=== PATIENT | female | born 1940 | race Caucasian/White ===

== ENCOUNTER 2020-12-14 09:27 | Inpatient (IN) ==
[2020-12-14] MEDS ORDERED: SODIUM CHLORIDE 0.9% 1,000 ML IV STA ×3 (09:35→11:13)
[2020-12-14] MEDS ORDERED: CLINDAMYCIN INJ 600 MG/50 ML PREMIX IV STA (09:36)
[2020-12-14] MEDS ORDERED: HYDROCORTISONE 100 MG VIAL IV STA (09:36)
[2020-12-14] MEDS ORDERED: LEVOFLOXACIN INJ 750 MG in PREMIX 1 EACH IV STA (09:36)
[2020-12-14 10:18] LABS: ABG Base Excess -0.4 MMOL/L (-2.5-2.5); ABG Oxygen Saturation 93.9 % (95-100); ABG PCO2 50.1 MM HG (35-48); ABG PH 7.327 (7.35-7.45); ABG PO2 71.8 MM HG (80-95); ABG TCO2 23.4 MMOL/L (23-27)
[2020-12-14 10:26] LABS: Basophils % 0.3 % (0.0-0.8); Hematocrit 43.3 VOL% (35.7-47.0); Hemoglobin 13.1 GM/DL (12.0-16.0); Immature Granulocytes % 1.4 %; Immature Granulocytes Absolute 0.17 #; Lymphocytes # 0.4 10*3/uL (1.4-4.0); Lymphocytes % 3.4 % (21.3-54.2); Mean Corpuscular HGB Conc 30.3 GM/DL (32-36); Mean Corpuscular Volume 104.6 FL (87-102); Mean Platelet Volume 11.9 FL (9.6-12.0); Monocytes % 3.9 % (1.7-12.7); Platelet Count 230 T/CUMM (130-400); Red Blood Count 4.14 MC/CUMM (3.8-5.5); Red Cell Distribution Width 14.7 % (9.3-17.3); White Blood Count 12.2 T/CUMM (4-12)
[2020-12-14 10:43] LABS: INR 1.2; PT Patient Result 12.9 SECS (10.5-12.0); Partial Thromboplastin Time 27.1 SECS (23.9-33.8)
[2020-12-14 10:46] LABS: Band Neutrophils 1 % (0-10); Lymphocytes 1 % (20-55); Platelet Estimate Adequate; Segmented Neutrophils 94 % (50-85); Total Cells Counted 100
[2020-12-14 10:52] LABS: Alanine Aminotransferase 29 U/L (13-56); Albumin 2.6 G/DL (3.4-5.0); Alkaline Phosphatase 88 U/L (45-117); Aspartate Amino Transferase 49 U/L (0-37); Blood Urea Nitrogen 47 MG/DL (7-18); Calcium 8.7 MG/DL (8.5-10.1); Carbon Dioxide 27 MMOL/L (21-32); Estimated Glom Filtration Rate 21 ML/MIN; Glucose 119 MG/DL (74-106); Osmolality,Calculated 306.3 MOS/KG (273-304); Potassium 4.4 MMOL/L (3.5-5.1); Sodium 148 MMOL/L (136-145); Total Protein 6.6 G/DL (6.4-8.2)
[2020-12-14] MEDS ORDERED: DEXTROSE 50% 25 GM/50 ML VIAL IV PRN (11:23)
[2020-12-14] MEDS ORDERED: GLUCAGON 1 MG VIAL IM PRN (11:23)
[2020-12-14] MEDS ORDERED: ONDANSETRON 4 MG/2 ML VIAL IV PRN (11:23)
[2020-12-14] MEDS ORDERED: VANCOMYCIN INJ 1,000 MG in SODIUM CHLORIDE 0.9% 250 ML IV ONE ×2 (12:00→13:00)
[2020-12-14 12:07] LABS: Risk Ratio 4.02; Thyroid Stimulating Hormone 0.401 uIU/ml (0.358-3.74)
[2020-12-14] MEDS: HEPARIN 5,000 UNIT/1 ML VIAL SUBCUT SCH ×2 (12:41→23:38)
[2020-12-14] MEDS: SODIUM BICARB INJ 100 MEQ in DEXTROSE 5% 1,000 ML IV SCH ×2 (12:41→23:36)
[2020-12-14 12:52] LABS: Bacteria,Urine Occasional /HPF (Few); Bilirubin,Urine Negative (Negative); Blood, Urine Small mg/dL (Negative); Glucose,Urine (UA) Negative (Negative); Hyaline Casts,Urine 37 /LPF (0-3); Ketones,Urine Negative (Negative); Mucus,Urine Few /LPF (Occasional); Nitrite,Urine Negative (Negative); Protein,Urine 30 MG/DL; RBC,Urine 8 /HPF (0-4); Squamous Epithelial Cell,Urine Few /HPF (0-10); Urine Appearance CLOUDY (Clear); Urine Color Yellow (Yellow); Urine Specific Gravity 1.013 (1.001-1.035); Urine Urobilinogen < 2.0 EU/DL (0.2-1.0)
[2020-12-14] MEDS: ALBUTEROL/IPRATROPIUM 3 ML NEB RESP TX SCH (19:57)
[2020-12-14] MEDS: MEROPENEM 500 MG in SODIUM CHLORIDE 0.9% 100 ML IV SCH (20:37)
[2020-12-15] MEDS: ALBUTEROL/IPRATROPIUM 3 ML NEB RESP TX SCH ×4 (00:11→18:12)
[2020-12-15 06:20] LABS: Basophils % 0.2 % (0.0-0.8); Hematocrit 35.8 VOL% (35.7-47.0); Immature Granulocytes % 0.9 %; Immature Granulocytes Absolute 0.09 #; Lymphocytes # 1.2 10*3/uL (1.4-4.0); Lymphocytes % 10.9 % (21.3-54.2); Mean Corpuscular HGB Conc 30.4 GM/DL (32-36); Mean Corpuscular Volume 102.9 FL (87-102); Mean Platelet Volume 13.1 FL (9.6-12.0); Monocytes % 4.5 % (1.7-12.7); Neutrophils % 83.5 % (38.7-73.9); Red Blood Count 3.48 MC/CUMM (3.8-5.5); Red Cell Distribution Width 14.8 % (9.3-17.3); White Blood Count 10.6 T/CUMM (4-12)
[2020-12-15 06:21] LABS: Hemoglobin 10.9 GM/DL (12.0-16.0); Platelet Count 166 T/CUMM (130-400)
[2020-12-15 06:37] LABS: Calcium 7.1 MG/DL (8.5-10.1); Osmolality,Calculated 293.7 MOS/KG (273-304); Potassium 4.3 MMOL/L (3.5-5.1)
[2020-12-15 06:39] LABS: Band Neutrophils 3 % (0-10); Hypochromasia Slight; Lymphocytes 14 % (20-55); Segmented Neutrophils 77 % (50-85); Total Cells Counted 100
[2020-12-15 06:40] LABS: Microcytosis 1+; Ovalocytes Few; Platelet Estimate Adequate
[2020-12-15] MEDS: MEROPENEM 500 MG in SODIUM CHLORIDE 0.9% 100 ML IV SCH ×2 (06:43→21:16)
[2020-12-15] MEDS: PANTOPRAZOLE 40 MG VIAL IV SCH (08:44)
[2020-12-15] MEDS ORDERED: ZIPRASIDONE 20 MG/1 ML VIAL IM PRN (10:16)
[2020-12-15] MEDS: SODIUM BICARB INJ 100 MEQ in DEXTROSE 5% 1,000 ML IV SCH (11:35)
[2020-12-15] MEDS: HEPARIN 5,000 UNIT/1 ML VIAL SUBCUT SCH ×2 (11:35→23:24)
[2020-12-15] MEDS: VANCOMYCIN INJ 1,000 MG in SODIUM CHLORIDE 0.9% 250 ML IV SCH (17:01)
[2020-12-15] MEDS: DEXTROSE 5% 1,000 ML IV SCH (17:01)
[2020-12-16] MEDS: ALBUTEROL/IPRATROPIUM 3 ML NEB RESP TX SCH ×4 (00:05→19:20)
[2020-12-16] MEDS: DEXTROSE 5% 1,000 ML IV SCH ×2 (05:00→20:58)
[2020-12-16 08:20] LABS: Basophils % 0.1 % (0.0-0.8); Eosinophils % 0.1 % (0.00-10.9); Hematocrit 30.9 VOL% (35.7-47.0); Hemoglobin 9.5 GM/DL (12.0-16.0); Immature Granulocytes % 1.2 %; Immature Granulocytes Absolute 0.13 #; Lymphocytes % 18.5 % (21.3-54.2); Mean Corpuscular HGB Conc 30.7 GM/DL (32-36); Mean Corpuscular Volume 100.7 FL (87-102); Mean Platelet Volume 11.5 FL (9.6-12.0); Monocytes % 4.2 % (1.7-12.7); Neutrophils % 75.9 % (38.7-73.9); Platelet Count 139 T/CUMM (130-400); Red Blood Count 3.07 MC/CUMM (3.8-5.5); Red Cell Distribution Width 14.6 % (9.3-17.3); White Blood Count 10.7 T/CUMM (4-12)
[2020-12-16 08:42] LABS: Hypochromasia 1+; Microcytosis 1+; Platelet Estimate Normal
[2020-12-16 08:44] LABS: Calcium 6.9 MG/DL (8.5-10.1); Osmolality,Calculated 289.8 MOS/KG (273-304); Potassium 3.5 MMOL/L (3.5-5.1)
[2020-12-16] MEDS: PANTOPRAZOLE 40 MG VIAL IV SCH (09:07)
[2020-12-16] MEDS: MEROPENEM 500 MG in SODIUM CHLORIDE 0.9% 100 ML IV SCH ×2 (09:07→20:58)
[2020-12-16] MEDS: HEPARIN 5,000 UNIT/1 ML VIAL SUBCUT SCH (11:26)
[2020-12-16] MEDS ORDERED: MAGNESIUM SULF RIDER 4 GM/100 ML PREMIX IV PRN (12:23)
[2020-12-16] MEDS ORDERED: MAGNESIUM SULF RIDER 2 GM/50 ML PREMIX IV PRN (12:23)
[2020-12-16] MEDS ORDERED: POLYETHYLENE GLYCOL POWDER 17 GM PACK PO PRN (14:19)
[2020-12-16] MEDS: VANCOMYCIN INJ 1,000 MG in SODIUM CHLORIDE 0.9% 250 ML IV SCH (17:05)
[2020-12-16] MEDS: MELATONIN 3 MG TABLET PO SCH ×2 (20:57→23:17)
[2020-12-16] MEDS: traZODone 50 MG TABLET PO SCH ×4 (20:57→23:16)
[2020-12-16] MEDS: ZINC OXIDE PASTE 113 GM TUBE TOP SCH (23:16)
[2020-12-17] MEDS: ALBUTEROL/IPRATROPIUM 3 ML NEB RESP TX SCH ×2 (00:35→09:55)
[2020-12-17] MEDS: HEPARIN 5,000 UNIT/1 ML VIAL SUBCUT SCH ×2 (01:52→11:34)
[2020-12-17 07:07] LABS: Basophils % 0.1 % (0.0-0.8); Eosinophils % 0.3 % (0.00-10.9); Hematocrit 32.5 VOL% (35.7-47.0); Hemoglobin 10.4 GM/DL (12.0-16.0); Immature Granulocytes % 0.8 %; Immature Granulocytes Absolute 0.08 #; Mean Corpuscular Volume 97.9 FL (87-102); Mean Platelet Volume 11.6 FL (9.6-12.0); Monocytes % 4.6 % (1.7-12.7); Neutrophils % 74.2 % (38.7-73.9); Platelet Count 151 T/CUMM (130-400); Red Blood Count 3.32 MC/CUMM (3.8-5.5); Red Cell Distribution Width 14.3 % (9.3-17.3); White Blood Count 10.1 T/CUMM (4-12)
[2020-12-17 07:31] LABS: Calcium 7.8 MG/DL (8.5-10.1); Osmolality,Calculated 276.5 MOS/KG (273-304); Potassium 3.4 MMOL/L (3.5-5.1)
[2020-12-17] MEDS: PANTOPRAZOLE 40 MG VIAL IV SCH (08:43)
[2020-12-17] MEDS: traZODone 50 MG TABLET PO SCH (08:43)
[2020-12-17] MEDS ORDERED: busPIRone 5 MG TABLET PO SCH (09:00)
[2020-12-17] MEDS: DEXTROSE 5% 1,000 ML IV SCH (09:03)
[2020-12-17] MEDS: MEROPENEM 500 MG in SODIUM CHLORIDE 0.9% 100 ML IV SCH (09:03)
[2020-12-17] MEDS: ZINC OXIDE PASTE 113 GM TUBE TOP SCH (09:09)
[2020-12-17] MEDS ORDERED: DIVALPROEX SPRINKLE 125 MG CAPSULE PO SCH (10:00)
[2020-12-17] MEDS ORDERED: DOXYCYCLINE HYCLATE 100 MG CAPSULE PO SCH (10:00)
[2020-12-17] MEDS ORDERED: POTASSIUM CHLORIDE 20 MEQ TABLET PO ONE (12:00)
[2020-12-17 16:28] VITALS: BP 146/104
== END 2020-12-17 16:42 | DRG 871 ==
LOC: EDUNIT# → EDBD → N.ED 09:27 → N.EDINP 11:08 → N.5E 20:11
PROVIDERS: ADMIT Hospitalist; ATTEND Hospitalist

== ENCOUNTER 2021-01-16 05:47 | Inpatient (IN) ==
[2021-01-16] MEDS ORDERED: ONDANSETRON 4 MG/2 ML VIAL IV STA (06:11)
[2021-01-16 06:41] LABS: Basophils % 0.1 % (0.0-0.8); Hematocrit 45.1 VOL% (35.7-47.0); Hemoglobin 14.7 GM/DL (12.0-16.0); Immature Granulocytes % 0.7 %; Lymphocytes # 0.5 10*3/uL (1.4-4.0); Lymphocytes % 3.6 % (21.3-54.2); Mean Corpuscular HGB Conc 32.6 GM/DL (32-36); Mean Corpuscular Volume 97.2 FL (87-102); Mean Platelet Volume 11.5 FL (9.6-12.0); Monocytes % 2.7 % (1.7-12.7); Neutrophils % 92.9 % (38.7-73.9); Platelet Count 359 T/CUMM (130-400); Red Blood Count 4.64 MC/CUMM (3.8-5.5); Red Cell Distribution Width 14.7 % (9.3-17.3); White Blood Count 13.8 T/CUMM (4-12)
[2021-01-16 06:54] LABS: Calcium 9.7 MG/DL (8.5-10.1); Osmolality,Calculated 274.1 MOS/KG (273-304); Potassium 3.8 MMOL/L (3.5-5.1)
[2021-01-16 07:03] LABS: Bilirubin,Urine Negative (Negative); Blood, Urine Negative (Negative); Glucose,Urine (UA) 50 mg/dL (Negative); Ketones,Urine 20 mg/dL (Negative); Mucus,Urine Moderate /LPF (Occasional); Nitrite,Urine Negative (Negative); Protein,Urine 30 MG/DL; RBC,Urine 2 /HPF (0-4); Squamous Epithelial Cell,Urine Occasional /HPF (0-10); Urine Appearance CLEAR (Clear); Urine Color Amber (Yellow); Urine Specific Gravity 1.019 (1.001-1.035)
[2021-01-16 07:58] LABS: Anisocytosis 2+; Band Neutrophils 10 % (0-10); Lymphocytes 7 % (20-55); Platelet Estimate Normal; Segmented Neutrophils 78 % (50-85); Total Cells Counted 100
[2021-01-16 07:59] LABS: Macrocytosis 1+
[2021-01-16] MEDS ORDERED: ONDANSETRON 4 MG/2 ML VIAL IV PRN (08:28)
[2021-01-16] MEDS ORDERED: GLUCAGON 1 MG VIAL IM PRN (08:28)
[2021-01-16] MEDS ORDERED: ALBUTEROL/IPRATROPIUM 3 ML NEB RESP TX PRN (08:28)
[2021-01-16] MEDS ORDERED: SODIUM CHLORIDE 0.9% 1,000 ML IV STA (08:34)
[2021-01-16] MEDS ORDERED: METOPROLOL TARTRATE 5 MG/5 ML VIAL IV PRN (08:35)
[2021-01-16] MEDS: LEVOFLOXACIN INJ 750 MG/150 ML PREMIX IV SCH (09:00)
[2021-01-16] MEDS: PANTOPRAZOLE INJ 200 MG in SODIUM CHLORIDE 0.9% 250 ML IV SCH (09:29)
[2021-01-16] MEDS: SODIUM CHLORIDE 0.9% 1,000 ML IV SCH ×4 (10:12→23:32)
[2021-01-16 12:01] LABS: Hematocrit 36.2 VOL% (35.7-47.0)
[2021-01-16 12:08] LABS: Hemoglobin 11.4 GM/DL (12.0-16.0)
[2021-01-16] MEDS: INSULIN LISPRO 100 UNIT/ML SUBCUT SCH ×3 (13:12→20:01)
[2021-01-16 16:11] LABS: Hematocrit 33.6 VOL% (35.7-47.0); Hemoglobin 10.8 GM/DL (12.0-16.0)
[2021-01-16 20:00] LABS: Hemoglobin 9.6 GM/DL (12.0-16.0)
[2021-01-17 01:33] LABS: Hematocrit 29.6 VOL% (35.7-47.0); Hemoglobin 9.6 GM/DL (12.0-16.0)
[2021-01-17 05:02] LABS: Basophils % 0.2 % (0.0-0.8); Eosinophils % 0.1 % (0.00-10.9); Hematocrit 29.6 VOL% (35.7-47.0); Hemoglobin 9.2 GM/DL (12.0-16.0); Immature Granulocytes % 0.5 %; Immature Granulocytes Absolute 0.06 #; Lymphocytes # 1.5 10*3/uL (1.4-4.0); Lymphocytes % 11.6 % (21.3-54.2); Mean Corpuscular HGB Conc 31.1 GM/DL (32-36); Mean Corpuscular Volume 100.3 FL (87-102); Monocytes % 7.9 % (1.7-12.7); Neutrophils % 79.7 % (38.7-73.9); Platelet Count 210 T/CUMM (130-400); Red Blood Count 2.95 MC/CUMM (3.8-5.5); White Blood Count 12.7 T/CUMM (4-12)
[2021-01-17 05:51] LABS: Alanine Aminotransferase < 9 U/L (13-56); Albumin 1.9 G/DL (3.4-5.0); Alkaline Phosphatase 59 U/L (45-117); Aspartate Amino Transferase 17 U/L (0-37); Blood Urea Nitrogen 16 MG/DL (7-18); Calcium 7.7 MG/DL (8.5-10.1); Carbon Dioxide 30 MMOL/L (21-32); Estimated Glom Filtration Rate 91 ML/MIN; Glucose 74 MG/DL (74-106); Osmolality,Calculated 280.3 MOS/KG (273-304); Potassium 3.7 MMOL/L (3.5-5.1); Sodium 141 MMOL/L (136-145); Total Protein 4.5 G/DL (6.4-8.2)
[2021-01-17] MEDS ORDERED: MAGNESIUM SULF RIDER 4 GM/100 ML PREMIX IV PRN (07:52)
[2021-01-17] MEDS: LEVOFLOXACIN INJ 750 MG/150 ML PREMIX IV SCH (09:25)
[2021-01-17] MEDS: INSULIN LISPRO 100 UNIT/ML SUBCUT SCH ×4 (12:08→20:07)
[2021-01-17] MEDS: PANTOPRAZOLE INJ 200 MG in SODIUM CHLORIDE 0.9% 250 ML IV SCH ×2 (12:09→15:43)
[2021-01-17] MEDS ORDERED: propofoL 200 MG/20 ML VIAL IV ONE (13:19)
[2021-01-17] MEDS ORDERED: LIDOCAINE 2% 5 ML VIAL ONE (13:19)
[2021-01-17] MEDS ORDERED: PHENYLEPHRINE 1 MG/10 ML SYRINGE IV ONE (13:38)
[2021-01-17] MEDS ORDERED: ETOMIDATE 20 MG/10 ML VIAL IV ONE (13:38)
[2021-01-17] MEDS: MAGNESIUM SULF RIDER 2 GM/50 ML PREMIX IV PRN (15:40)
[2021-01-17] MEDS: SODIUM CHLORIDE 0.9% 1,000 ML IV SCH ×3 (15:41→17:25)
[2021-01-17] MEDS ORDERED: LORazepam 2 MG/1 ML VIAL IV ONE (20:04)
[2021-01-18 00:17] LABS: ABG Base Excess 1.3 MMOL/L (-2.5-2.5); ABG HCO3 28.9 MMOL/L (20-26); ABG Oxygen Saturation 88.3 % (95-100); ABG PCO2 62.2 MM HG (35-48); ABG PH 7.285 (7.35-7.45); ABG PO2 60.3 MM HG (80-95); ABG TCO2 30.8 MMOL/L (23-27); Allen Test Positive; Pt O2 Delivery Device Venturi Mask
[2021-01-18] MEDS: SODIUM CHLORIDE 0.9% 1,000 ML IV SCH ×5 (00:31→22:09)
[2021-01-18 04:20] LABS: ABG HCO3 27.7 MMOL/L (20-26); ABG Oxygen Saturation 91.4 % (95-100); ABG PCO2 67.9 MM HG (35-48); ABG PH 7.228 (7.35-7.45); ABG PO2 69.8 MM HG (80-95); ABG TCO2 29.8 MMOL/L (23-27)
[2021-01-18] MEDS ORDERED: ROCURONIUM 100 MG/10 ML VIAL IV ONE (04:24)
[2021-01-18] MEDS ORDERED: ETOMIDATE 20 MG/10 ML VIAL IV ONE ×2 (04:24→04:50)
[2021-01-18] MEDS ORDERED: SODIUM CHLORIDE 0.9% 250 ML IV ONE (04:47)
[2021-01-18] MEDS ORDERED: SODIUM BICARBONATE 50 MEQ/50 ML VIAL IV ONE ×2 (04:52→04:53)
[2021-01-18] MEDS ORDERED: NOREPINEPHRINE 4 MG/4 ML VIAL IV ONE (04:53)
[2021-01-18] MEDS: NOREPINEPHRINE 8 MG in SODIUM CHLORIDE 0.9% 242 ML IV PRN (05:00)
[2021-01-18] MEDS ORDERED: MIDAZOLAM 10 MG/2 ML VIAL IV ONE (05:02)
[2021-01-18] MEDS ORDERED: MIDAZOLAM 10 MG/2 ML VIAL ONE (05:02)
[2021-01-18] MEDS: MIDAZOLAM 100 MG in SODIUM CHLORIDE 0.9% 80 ML IV PRN ×2 (05:10→21:34)
[2021-01-18 05:28] LABS: Basophils % 0.3 % (0.0-0.8); Eosinophils % 0.1 % (0.00-10.9); Hematocrit 33.8 VOL% (35.7-47.0); Hemoglobin 10.1 GM/DL (12.0-16.0); Immature Granulocytes % 1.2 %; Immature Granulocytes Absolute 0.17 #; Lymphocytes # 1.7 10*3/uL (1.4-4.0); Lymphocytes % 12.5 % (21.3-54.2); Mean Corpuscular HGB Conc 29.9 GM/DL (32-36); Mean Corpuscular Volume 104.6 FL (87-102); Mean Platelet Volume 12.2 FL (9.6-12.0); Monocytes % 9.1 % (1.7-12.7); Neutrophils % 76.8 % (38.7-73.9); Platelet Count 288 T/CUMM (130-400); Red Blood Count 3.23 MC/CUMM (3.8-5.5); Red Cell Distribution Width 15.1 % (9.3-17.3); White Blood Count 13.8 T/CUMM (4-12)
[2021-01-18 05:45] LABS: Bilirubin,Urine Negative (Negative); Blood, Urine Negative (Negative); Calcium Oxalate Crystals,Urine Occasional /HPF (Few); Glucose,Urine (UA) Negative (Negative); Hyaline Casts,Urine 3 /LPF (0-3); Ketones,Urine 5 mg/dL (Negative); Mucus,Urine Occasional /LPF (Occasional); Nitrite,Urine Negative (Negative); Protein,Urine 30 MG/DL; RBC,Urine 5 /HPF (0-4); Squamous Epithelial Cell,Urine Occasional /HPF (0-10); Urine Appearance Slightly Hazy (Clear); Urine Color Yellow (Yellow); Urine Specific Gravity 1.013 (1.001-1.035); Urine Urobilinogen < 2.0 EU/DL (0.2-1.0)
[2021-01-18 05:48] LABS: ABG Base Excess 1.2 MMOL/L (-2.5-2.5); ABG HCO3 25.5 MMOL/L (20-26); ABG Oxygen Saturation 99.9 % (95-100); ABG PCO2 37.5 MM HG (35-48); ABG PH 7.436 (7.35-7.45); ABG TCO2 23.3 MMOL/L (23-27)
[2021-01-18 06:04] LABS: Osmolality,Calculated 279.3 MOS/KG (273-304); Potassium 3.6 MMOL/L (3.5-5.1)
[2021-01-18] MEDS ORDERED: SODIUM CHLORIDE 0.9% 1,000 ML IV SCH (06:30)
[2021-01-18] MEDS: INSULIN LISPRO 100 UNIT/ML SUBCUT SCH ×3 (10:19→18:05)
[2021-01-18] MEDS: LEVOFLOXACIN INJ 750 MG/150 ML PREMIX IV SCH (11:26)
[2021-01-18] MEDS: PANTOPRAZOLE INJ 200 MG in SODIUM CHLORIDE 0.9% 250 ML IV SCH (14:00)
[2021-01-18] MEDS: DESITIN 4OZ/NYSTATIN 15 GRAM MIXTURE PASTE TOP SCH ×2 (15:15→20:28)
[2021-01-18] MEDS: DEXTROSE 50% 25 GM/50 ML VIAL IV PRN (17:50)
[2021-01-18] MEDS ORDERED: MEPERIDINE 50 MG/1 ML VIAL IV ONE (23:22)
[2021-01-19] MEDS: INSULIN LISPRO 100 UNIT/ML SUBCUT SCH ×5 (00:27→23:28)
[2021-01-19] MEDS: NOREPINEPHRINE 8 MG in SODIUM CHLORIDE 0.9% 242 ML IV PRN (01:20)
[2021-01-19 03:15] LABS: ABG Base Excess -0.9 MMOL/L (-2.5-2.5); ABG HCO3 21.8 MMOL/L (20-26); ABG Oxygen Saturation 98.9 % (95-100); ABG PO2 202.6 MM HG (80-95); ABG TCO2 22.8 MMOL/L (23-27)
[2021-01-19 03:41] LABS: Basophils % 0.2 % (0.0-0.8); Eosinophils # 0.2 10*3/uL (0.0-0.87); Eosinophils % 2.5 % (0.00-10.9); Hematocrit 26.2 VOL% (35.7-47.0); Hemoglobin 8.4 GM/DL (12.0-16.0); Immature Granulocytes % 0.7 %; Immature Granulocytes Absolute 0.06 #; Lymphocytes # 1.9 10*3/uL (1.4-4.0); Lymphocytes % 23.8 % (21.3-54.2); Mean Corpuscular HGB Conc 32.1 GM/DL (32-36); Mean Corpuscular Volume 98.1 FL (87-102); Mean Platelet Volume 11.6 FL (9.6-12.0); Monocytes % 8.6 % (1.7-12.7); Neutrophils % 64.2 % (38.7-73.9); Platelet Count 220 T/CUMM (130-400); Red Blood Count 2.67 MC/CUMM (3.8-5.5); White Blood Count 8.1 T/CUMM (4-12)
[2021-01-19 03:57] LABS: Calcium 6.8 MG/DL (8.5-10.1); Osmolality,Calculated 284.7 MOS/KG (273-304); Potassium 2.7 MMOL/L (3.5-5.1)
[2021-01-19] MEDS: MAGNESIUM SULF RIDER 2 GM/50 ML PREMIX IV PRN (04:08)
[2021-01-19] MEDS: POTASSIUM CHLORIDE RIDER 10 MEQ/100 ML PREMIX IV PRN ×5 (04:37→08:38)
[2021-01-19] MEDS: MEPERIDINE 50 MG/1 ML VIAL IV PRN ×2 (05:31→13:10)
[2021-01-19] MEDS: SODIUM CHLORIDE 0.9% 1,000 ML IV SCH ×3 (06:31→18:03)
[2021-01-19] MEDS: DESITIN 4OZ/NYSTATIN 15 GRAM MIXTURE PASTE TOP SCH ×2 (10:09→20:19)
[2021-01-19] MEDS: LEVOFLOXACIN INJ 750 MG/150 ML PREMIX IV SCH (10:09)
[2021-01-19] MEDS: FAMOTIDINE 8 MG/ML 50 ML/BOTTLE PEG SCH ×4 (10:10→21:22)
[2021-01-19] MEDS: MAGNESIUM SULF RIDER 4 GM/100 ML PREMIX IV SCH ×2 (12:07→19:24)
[2021-01-19] MEDS: MIDAZOLAM 100 MG in SODIUM CHLORIDE 0.9% 80 ML IV PRN (16:35)
[2021-01-19] MEDS: DEXTROSE 50% 25 GM/50 ML VIAL IV PRN ×2 (17:29→17:30)
[2021-01-19] MEDS: PANTOPRAZOLE 40 MG VIAL IV SCH (20:18)
[2021-01-20 04:18] LABS: ABG Base Excess -2.6 MMOL/L (-2.5-2.5); ABG HCO3 22.3 MMOL/L (20-26); ABG Oxygen Saturation 98.9 % (95-100); ABG PCO2 33.7 MM HG (35-48); ABG PH 7.412 (7.35-7.45); ABG TCO2 19.5 MMOL/L (23-27)
[2021-01-20 04:33] LABS: Basophils % 0.3 % (0.0-0.8); Eosinophils # 0.3 10*3/uL (0.0-0.87); Hematocrit 30.8 VOL% (35.7-47.0); Hemoglobin 9.8 GM/DL (12.0-16.0); Immature Granulocytes % 0.7 %; Immature Granulocytes Absolute 0.08 #; Lymphocytes # 0.9 10*3/uL (1.4-4.0); Lymphocytes % 8.2 % (21.3-54.2); Mean Corpuscular HGB Conc 31.8 GM/DL (32-36); Mean Corpuscular Volume 97.8 FL (87-102); Mean Platelet Volume 11.7 FL (9.6-12.0); Neutrophils % 82.8 % (38.7-73.9); Platelet Count 222 T/CUMM (130-400); Red Blood Count 3.15 MC/CUMM (3.8-5.5); Red Cell Distribution Width 15.6 % (9.3-17.3); White Blood Count 10.8 T/CUMM (4-12)
[2021-01-20 04:44] LABS: Potassium 3.4 MMOL/L (3.5-5.1)
[2021-01-20] MEDS: INSULIN LISPRO 100 UNIT/ML SUBCUT SCH ×4 (05:01→23:28)
[2021-01-20] MEDS: SODIUM CHLORIDE 0.9% 1,000 ML IV SCH ×5 (05:02→21:36)
[2021-01-20] MEDS: LEVOFLOXACIN INJ 750 MG/150 ML PREMIX IV SCH (09:14)
[2021-01-20] MEDS: PANTOPRAZOLE 40 MG VIAL IV SCH ×2 (09:14→20:54)
[2021-01-20] MEDS: DESITIN 4OZ/NYSTATIN 15 GRAM MIXTURE PASTE TOP SCH ×2 (09:15→20:55)
[2021-01-20] MEDS: MIDAZOLAM 100 MG in SODIUM CHLORIDE 0.9% 80 ML IV PRN (10:54)
[2021-01-20] MEDS: NOREPINEPHRINE 8 MG in SODIUM CHLORIDE 0.9% 242 ML IV PRN (11:56)
[2021-01-20] MEDS: DIVALPROEX SPRINKLE 125 MG CAPSULE PO SCH ×2 (13:49→20:53)
[2021-01-20] MEDS: traZODone 50 MG TABLET PO SCH ×2 (13:50→20:54)
[2021-01-20] MEDS: busPIRone 5 MG TABLET PO SCH (13:50)
[2021-01-20] MEDS: NYSTATIN POWDER 15 GM BOTTLE TOP SCH (20:55)
[2021-01-20] MEDS ORDERED: traZODone 50 MG TABLET PO SCH (21:00)
[2021-01-21] MEDS: SODIUM CHLORIDE 0.9% 1,000 ML IV SCH ×3 (02:00→08:30)
[2021-01-21] MEDS: MIDAZOLAM 100 MG in SODIUM CHLORIDE 0.9% 80 ML IV PRN (05:21)
[2021-01-21 05:34] LABS: ABG Base Excess -4.3 MMOL/L (-2.5-2.5); ABG HCO3 20.9 MMOL/L (20-26); ABG PCO2 33.9 MM HG (35-48); ABG PH 7.383 (7.35-7.45); ABG TCO2 18.6 MMOL/L (23-27)
[2021-01-21 05:42] LABS: Basophils % 0.3 % (0.0-0.8); Eosinophils # 0.3 10*3/uL (0.0-0.87); Eosinophils % 3.7 % (0.00-10.9); Hematocrit 28.2 VOL% (35.7-47.0); Hemoglobin 8.9 GM/DL (12.0-16.0); Immature Granulocytes % 0.9 %; Immature Granulocytes Absolute 0.08 #; Lymphocytes # 1.4 10*3/uL (1.4-4.0); Lymphocytes % 14.9 % (21.3-54.2); Mean Corpuscular HGB Conc 31.6 GM/DL (32-36); Mean Corpuscular Volume 98.6 FL (87-102); Mean Platelet Volume 11.5 FL (9.6-12.0); Monocytes % 6.6 % (1.7-12.7); Neutrophils % 73.6 % (38.7-73.9); Platelet Count 195 T/CUMM (130-400); Red Blood Count 2.86 MC/CUMM (3.8-5.5); Red Cell Distribution Width 16.1 % (9.3-17.3); White Blood Count 9.1 T/CUMM (4-12)
[2021-01-21 05:50] LABS: Potassium 3.2 MMOL/L (3.5-5.1)
[2021-01-21] MEDS: INSULIN LISPRO 100 UNIT/ML SUBCUT SCH ×2 (06:05→12:00)
[2021-01-21] MEDS ORDERED: POTASSIUM CHLORIDE 20 MEQ TABLET PO SCH (07:30)
[2021-01-21] MEDS: PANTOPRAZOLE 40 MG VIAL IV SCH (09:00)
[2021-01-21] MEDS ORDERED: VALPROIC ACID 250 MG/5 ML UDCUP PO SCH (09:00)
[2021-01-21] MEDS: LEVOFLOXACIN INJ 750 MG/150 ML PREMIX IV SCH (09:05)
[2021-01-21] MEDS: traZODone 50 MG TABLET PO SCH (09:15)
[2021-01-21] MEDS: POTASSIUM BICARB EFFERVESCENT 20 MEQ TAB.EFF PO SCH ×2 (09:15→12:10)
[2021-01-21] MEDS: busPIRone 5 MG TABLET PO SCH (09:15)
[2021-01-21] MEDS: NYSTATIN POWDER 15 GM BOTTLE TOP SCH (11:10)
[2021-01-21] MEDS: DESITIN 4OZ/NYSTATIN 15 GRAM MIXTURE PASTE TOP SCH (11:10)
[2021-01-21 14:53] VITALS: BP 0/0
== END 2021-01-21 14:00 | disposition expired | DRG 208 ==
LOC: N.ED 05:47 → N.EDINP 08:28 → SUATTDRO 08:28 → N.EDINP 10:56 → N.TELES 11:15 → N.ICU 01-18 04:49
PROVIDERS: ADMIT Emergency Medicine; ATTEND Internal Medicine